=== PATIENT | male | born 1955 | race Caucasian/White ===

== ENCOUNTER → 2023-06-06 15:58 | Outpatient (REF) | payer MEDICARE, OTHER, SELFPAY | LOC: RAD 15:58 | PROVIDERS: ATTENDING PHYSICIAN Internal Medicine | DX: R91.1 Solitary pulmonary nodule (principal) | CPT/HCPCS: 71046 ==

== ENCOUNTER 2024-07-31 06:25 | Day surgery (SDC) | payer MEDICARE, OTHER, SELFPAY | END 2024-07-31 13:10 | disposition home or self-care (01) | LOC: GI 06:25 | PROVIDERS: ATTENDING PHYSICIAN Student in an Organized Health Care Education/Training Program | DX: Z12.11 Encounter for screening for malignant neoplasm of colon (principal); K57.30 Diverticulosis of large intestine without perforation or abscess without bleeding; K44.9 Diaphragmatic hernia without obstruction or gangrene; K31.7 Polyp of stomach and duodenum; K22.89 Other specified disease of esophagus; K22.70 Barrett's esophagus without dysplasia; D12.2 Benign neoplasm of ascending colon; D12.3 Benign neoplasm of transverse colon; K63.5 Polyp of colon; K62.1 Rectal polyp; Z86.0100 Personal history of colon polyps, unspecified | CPT/HCPCS: 43251; 45385; 45380; 88305 ==

== ENCOUNTER 2024-10-16 05:59 | Emergency (ER) | payer MEDICARE, OTHER, SELFPAY ==
[2024-10-16 06:00] VITALS: BP 142/88
--- NOTE | 2024-10-16 06:47 | ED.SKININJ ---
HPI-Injury
<Attila Mckinley MD, Resident - Last Filed: 10/16/24 07:24>
General
Chief Complaint: Bite
Source: patient
Exam Limitations: none
Time Seen by Provider: 10/16/24 06:43
History of Present Illness-Injury
Is this injury a work related problem?: No
Initial Injury comments:
69-year-old male old presenting in the ER with complaints of bilateral hand swelling. He states that he was stung by yellow jackets yesterday around noon when he was working in the pool. He informed me there were 6�10 bites on both hands and left
forearm. He took Benadrylm, but still developed some swelling initially which increased overnight and prompted him to come to the emergency department. He complains of 4/10 pain and itching. Denies any systemic symptoms including fevers, chills,
trouble breathing or joint pain.
Past History
<Attila Mckinley MD, Resident - Last Filed: 10/16/24 07:24>
Past History
ED Past Medical History: Asthma, GERD ([place]) and Hypercholesterolemia
ED Past Surgical History: Cardiac (pericardial cystectomy)
Social History
Tobacco: Former smoker
Alcohol: Occasional
Drug: None
Review of Systems
<Attila Mckinley MD, Resident - Last Filed: 10/16/24 07:24>
Review of Systems
Allergies reviewed?: Yes
Constitutional: Reports no symptoms
EENT: Reports no symptoms
Respiratory: Reports no symptoms
Cardiac: Reports no symptoms
ABD/GI: Reports no symptoms
: Reports no symptoms
Musculoskeletal: Reports no symptoms
Skin: Reports itching and other (Mild swelling of bilateral hands near the sting sites.)
Neurological: Reports no symptoms
Endocrine: Reports no symptoms
Hematologic/Lymphatic: Reports no symptoms
Psychiatric: Reports no symptoms
Skin Exam
<Attila Mckinley MD, Resident - Last Filed: 10/16/24 07:24>
Bee Sting
Bilateral Dorsal Hand:
Pt has: multiple bites/stings
Surrounding area around sting/bite has: no evidence of erythema and pruritic
Phy Exam
<Attila Mckinley MD, Resident - Last Filed: 10/16/24 07:24>
General Physical Exam
General Presentation: well appearing and no apparent distress
General age: appears stated age
General Skin: warm
General Habitus: normal
General Mental: alert
General Hydration: appears well hydrated
Cardiovascular Exam
Cardiovascular Exam: regular rate/rhythm and no murmur
Pulmonary Exam
Pulmonary Exam: lungs clear and no respiratory distress
Musculoskeletal Exam
Musculoskeletal Exam: full ROM
Skin Exam
Skin Exam: normal color, warm/dry and tenderness (minimal tenderness on b/l dorsal hands)
Course
<Attila Mckinley MD, Resident - Last Filed: 10/16/24 07:24>
Orders/Labs/Results
Orders:
Orders
10/16/24 06:59
Prednisone [Deltasone] 40 mg PO NOW STA
10/16/24 07:17
Diphenhydramine [Benadryl] 25 mg PO NOW STA
Vital Signs
Initial and Last Documented VS:
Initial Vital Signs
Temp Pulse Resp BP Pulse Ox
98 F 78 18 142/88 98
10/16/24 06:00 10/16/24 06:00 10/16/24 06:00 10/16/24 06:00 10/16/24 06:00
Last Documented Vital Signs
Temp Pulse Resp BP Pulse Ox
98 F 64 18 136/90 98
10/16/24 06:00 10/16/24 06:56 10/16/24 06:56 10/16/24 06:56 10/16/24 06:56
<Raul Cain DO - Last Filed: 10/16/24 07:12>
Orders/Labs/Results
Orders:
Orders
10/16/24 06:59
Prednisone [Deltasone] 40 mg PO NOW STA
10/16/24 07:17
Diphenhydramine [Benadryl] 25 mg PO NOW STA
Vital Signs
Initial and Last Documented VS:
Initial Vital Signs
Temp Pulse Resp BP Pulse Ox
98 F 78 18 142/88 98
10/16/24 06:00 10/16/24 06:00 10/16/24 06:00 10/16/24 06:00 10/16/24 06:00
Last Documented Vital Signs
Temp Pulse Resp BP Pulse Ox
98 F 64 18 136/90 98
10/16/24 06:00 10/16/24 06:56 10/16/24 06:56 10/16/24 06:56 10/16/24 06:56
<Attila Mckinley MD, Resident - Last Filed: 10/16/24 07:24>
MDM/Problems Addressed
Differential Diagnosis Includes:
Hymenoptera venom- Local reaction
MDM/Problems Addressed:
This is a 69-year-old male complains of mild swelling and 2/10 pain on bilateral hands after standby multiple yellow jackets yesterday. Denies any systemic symptoms. History of yellowjacket bites in the past.
Will give 40 mg prednisone p.o. in the emergency department and plan to discharge the patient on Medrol Dosepak. Patient verified understanding and agreed with the plan. He understands if he develop any worsening of the symptoms or trouble
breathing or swelling around the lips which is less likely, he should come back to the emergency department.
<Attila Mckinley MD, Resident - Last Filed: 10/16/24 07:24>
*Pulse Oximetry
SaO2: 98
Oxygen Mode of Delivery: Room air
*Critical Care Note
Total Time (30-74mins, 75-104mins- exclusive of procedures): Not Applicable
<Raul Cain DO - Last Filed: 10/16/24 07:12>
*Pulse Oximetry
Patient hypoxic: no
ED Attending Note
<Attila Mckinley MD, Resident - Last Filed: 10/16/24 07:24>
-
Portions of this chart may have been created with voice recognition software.� Occasional wrong word or��sound alike� substitutions may have occurred due to the inherent limitations of voice recognition software.
<Raul Cain DO - Last Filed: 10/16/24 07:12>
ED Attending Note
Patient seen and examined by attending physician: Yes
I performed a history and physical exam of patient and discussed management with resident, I reviewed resident's note and agree with documented findings and plan of care.: Yes
ED Attending Note:
Seen with resident examined independently 69-year-old male multiple bee stings to his hands no signs of anaphylaxis or systemic illness took some Benadryl which we will continue also try some ice and short course of steroids
Discharge Plan
Departure
Patient Disposition: Home (Routine Discharge)
Date of Disposition: 10/16/24
Time of Disposition: 07:21
Patient with high blood pressure during this ER visit?: Yes
Discharge Problem:
Stung by yellow jacket
Instructions: Insect Bites and Stings (DC), BLOOD PRESSURE
Prescriptions:
New
methylprednisolone [Medrol (Yaron)] 4 mg tablets,dose pack
See Rx Instructions .ROUTE .COMPLEX Qty: 21 0RF
Rx Instructions:
for 6 days
No Action
Tylenol Pm
2 tab HS
prednisone 50 MG tablet
50 mg PO DAILY Qty: 5 0RF
Referrals:
Martir Stone MD [Family Provider, Internal Medicine]
Interventions
Interventions:
*Risk Screen - Suicide Last Done: 10/16/24 06:00
*General Assessment Last Done: 10/16/24 06:52
*Neglect/Abuse Screening Last Done: 10/16/24 06:00
*ED- Fall Risk Assessment Last Done: 10/16/24 06:52
*ED COVID-19 Vaccine History Last Done: 10/16/24 06:52
ED-Skin Assessment Last Done: 10/16/24 06:52
Discharge Date and Time
Print Language: KINYARWANDA
[2024-10-16 06:52] VITALS: BMI 26.8
[2024-10-16 06:56] VITALS: BP 136/90
--- NOTE | 2024-10-16 07:00 | EDRN ---
Patient stated that he got stung yesterday on both hands by bees. +swelling and redness of bilateral hands. Patient denies any chest pain,throat swelling/tightness and SOB.
[2024-10-16] MEDS: BENADRYL 25 MG PO (07:28)
[2024-10-16] MEDS: DELTASONE 40 MG PO (07:28)
--- NOTE | 2024-10-16 07:34 | EDRN ---
Reviewed discharge instructions with patient. Verbalized understanding. Ambulated with steady gait to the lobby.
[2024-10-16 07:35] VITALS: BP 136/90
== END 2024-10-16 07:30 | disposition home or self-care (01) ==
LOC: EMR 05:59
PROVIDERS: EMERGENCY PHYSICIAN Emergency Medicine; FAMILY PHYSICIAN Internal Medicine
DX: T63.461A Toxic effect of venom of wasps, accidental (unintentional), initial encounter (principal); Y92.9 Unspecified place or not applicable; J45.909 Unspecified asthma, uncomplicated; K21.9 Gastro-esophageal reflux disease without esophagitis; E78.00 Pure hypercholesterolemia, unspecified; Z87.891 Personal history of nicotine dependence
CPT/HCPCS: 99282